=== PATIENT | female | born 1965 | race African-American/Black ===

== ENCOUNTER → 2017-11-27 | Outpatient (CLI) | payer MEDICAID ==
[~2017-11-27] MED LIST: ADV100 IH; ALBU8HFA IH
== END | disposition home or self-care (01) ==
LOC: RADMN 08:16
PROVIDERS: ATTEND Internal Medicine Cardiovascular Disease
DX: I45.10 Unspecified right bundle-branch block (principal); R93.1 Abnormal findings on diagnostic imaging of heart and coronary circulation; I50.20 Unspecified systolic (congestive) heart failure; I42.9 Cardiomyopathy, unspecified
CPT/HCPCS: 78472; Q3010

== ENCOUNTER → 2019-05-08 | Outpatient (CLI) | payer MEDICAID | END | disposition home or self-care (01) | LOC: RADMN 08:49 | PROVIDERS: ATTEND Nutritionist Nutrition, Education | DX: I11.0 Hypertensive heart disease with heart failure (principal); I50.9 Heart failure, unspecified | CPT/HCPCS: 78472; A9560 ==

== ENCOUNTER 2020-08-03 06:03 | Day surgery (SDC) | payer MEDICAID ==
[~2020-08-03] VITALS: Ht 175.3 cm; Wt 70.0 kg
[~2020-08-03 06:03] MED LIST changes: -ADV100 IH; +FLUT1DIS4 IH
[2020-08-03 06:27] LABS: COVID AG,FIA SOURCE NASOPHARYNGEAL
[2020-08-03] MEDS ORDERED: MIDAZOLAM HCL 2 MG/2 ML VIAL ONE (07:32)
[2020-08-03] MEDS ORDERED: FentaNYL CITRATE-PF 100 MCG/2 ML VIAL ONE (07:32)
[2020-08-03] MEDS ORDERED: SODIUM CHLORIDE 0.9% 1,000 ML ONE (07:40)
[2020-08-03] MEDS: SODIUM CHLORIDE 0.9% 1,000 ML IV ONE (07:58)
[2020-08-03] MEDS ORDERED: MethylPREDNISolone SOD SUCC 125 MG/2 ML VIAL ONE (09:30)
[2020-08-03] MEDS: MethylPREDNISolone SOD SUCC 125 MG/2 ML VIAL IVP ONE (09:45)
[2020-08-03] MEDS ORDERED: LIDOCAINE 2% 30 ML JELLY ONE (11:32)
[2020-08-03] MEDS ORDERED: LIDOCAINE 4% 50 ML SOLUTION ONE (11:32)
[2020-08-03] MEDS ORDERED: BENZOCAINE 20% 50 MCG/SPRAY 57 GM ONE (11:32)
[2020-08-03] MEDS ORDERED: ALBUTEROL SULFATE 2.5 MG/0.5 ML NEB SOLUTION NEB ONE (11:32)
[2020-08-03] MEDS ORDERED: OXYGEN THERAPY IH SCH (20:00)
== END 2020-08-03 11:15 | disposition home or self-care (01) ==
LOC: SURGERY 06:03
PROVIDERS: ATTEND Internal Medicine Critical Care Medicine
DX: J38.4 Edema of larynx (principal); B37.0 Candidal stomatitis; Z20.828 Contact with and (suspected) exposure to other viral communicable diseases
CPT/HCPCS: 31623; 31624; 71045; 87070; 87101; 87206; 87220; 87426; 93005; C9803; J2250; J2930; J3010; J7030; 87015; 88108; 88312; J7613; Z7610